=== PATIENT | male | born 1950 | race Caucasian/White ===

== ENCOUNTER 2018-07-01 10:15 | Emergency (ER) | payer MEDICARE, OTHER, MEDICAID ==
[2018-07-01 10:59] LABS: ADD MAN DIFF? NO
[2018-07-01 11:01] LABS: BASOPHIL # 0.1 10^3/ul (0.0-0.1); BASOPHILS % 0.3 % (0.0-2.0); EOSINOPHILS % 0.1 % (0.0-7.0); HEMATOCRIT 40.2 % (42.0-52.0); HEMOGLOBIN 13.9 g/dl (14.0-18.0); LYMPHOCYTES # 1.9 10^3/ul (0.8-2.9); LYMPHOCYTES % 9.3 % (15.0-51.0); MEAN CORPUSCULAR HEMOGLOBIN 33.7 pg (29.0-33.0); MEAN CORPUSCULAR HGB CONC 34.6 g/dl (32.0-37.0); MEAN CORPUSCULAR VOLUME 97.6 fl (82.0-101.0); MEAN PLATELET VOLUME 10.7 fl (7.4-10.4); MONOCYTE # 1.1 10^3/ul (0.3-0.9); MONOCYTES % 5.5 % (0.0-11.0); NEUTROPHIL # 16.8 10^3/ul (1.6-7.5); NEUTROPHILS % 84.1 % (39.0-77.0); PLATELET COUNT 192 10^3/UL (140-415); RED BLOOD COUNT 4.12 10^6/ul (4.70-6.10); RED CELL DISTRIBUTION WIDTH 12.3 % (11.5-14.5)
[2018-07-01 11:01] LABS: WHITE BLOOD COUNT 20.1 10^3/ul (4.8-10.8)
[2018-07-01] MEDS: ONDANSETRON 4 MG INJ IV ×2 (11:11→14:04)
[2018-07-01] MEDS: SOD CHLORIDE 0.9% 500 ML IV (11:11)
[2018-07-01] MEDS: HYDROmorphONE 1 MG/ML SYG IV (11:12)
[2018-07-01 12:09] LABS: ALANINE AMINOTRANSFERASE 18 IU/L (13-69); ALBUMIN 4.3 g/dl (3.3-4.9); ALBUMIN/GLOBULIN RATIO 1.34; ALKALINE PHOSPHATASE 109 IU/L (42-121); ANION GAP 14 (5-13); ASPARTATE AMINO TRANSFERASE 19 IU/L (15-46); BILIRUBIN,INDIRECT 0.6 mg/dl (0-1.1); BILIRUBIN,TOTAL 0.6 mg/dl (0.2-1.3); BLOOD UREA NITROGEN 19 mg/dl (7-20); CALCIUM 9.4 mg/dl (8.4-10.2); CARBON DIOXIDE 22 mmol/L (21-31); CHLORIDE 104 mmol/L (97-110); CREATININE 1.22 mg/dl (0.61-1.24); Estimated GFR 59 mL/min (>60); GLUCOSE 141 mg/dl (70-220); POTASSIUM 3.7 mmol/L (3.5-5.1); SODIUM 140 mmol/L (135-144); TOTAL PROTEIN 7.5 g/dl (6.1-8.1)
[2018-07-01 12:13] LABS: LIPASE < 10 U/L (23-300)
[2018-07-01] MEDS: NA PHOSPHATE/BIPHOS 133 ML ENEMA PR (12:17)
[2018-07-01 12:19] LABS: TROPONIN-I 0.031 ng/ml (0.000-0.120)
[2018-07-01 13:06] LABS: ADD UMIC NO; UR ASCORBIC ACID NEGATIVE (NEGATIVE); UR BILIRUBIN (Dip) NEGATIVE (NEGATIVE); UR BLOOD (Dip) NEGATIVE (NEGATIVE); UR CLARITY CLEAR (CLEAR); UR COLOR YELLOW (YELLOW); UR GLUCOSE (Dip) NEGATIVE (NEGATIVE); UR KETONES (Dip) NEGATIVE (NEGATIVE); UR LEUKOCYTE ESTERASE (Dip) NEGATIVE Leu/ul (NEGATIVE); UR NITRITE (Dip) NEGATIVE (NEGATIVE); UR SPECIFIC GRAVITY (Dip) 1.013 (1.003-1.030); UR TOTAL PROTEIN (Dip) NEGATIVE (NEGATIVE); UR UROBILINOGEN (Dip) NEGATIVE (NEGATIVE)
[2018-07-01] MEDS: morphine 4 MG/ML VIAL IV (14:04)
== END 2018-07-01 14:44 | disposition home or self-care (01) ==
LOC: E/R 10:15
DX: R10.84 Generalized abdominal pain (principal); I10 Essential (primary) hypertension; J45.909 Unspecified asthma, uncomplicated; K59.00 Constipation, unspecified
CPT/HCPCS: 36415; 74176; 80053; 81003; 83690; 84484; 85025; 96374; 96375; 96376; 99285-25

== ENCOUNTER 2018-08-19 08:52 | Emergency (ER) | payer MEDICARE, OTHER ==
[2018-08-19] MEDS ORDERED: ALBUTEROL 0.083% (NEB) 2.5 MG/3 ML AMP HHN (08:59)
[2018-08-19] MEDS ORDERED: IPRATROPIUM (NEB) 0.5 MG/2.5 ML AMP HHN (09:00)
[2018-08-19 09:07] LABS: AADO2 Venous 627.5 mmHg; MODE MASK - NRB; MetHgb Venous 0.4 %; Sample Type Blood venous; Site OTHER; Venous COHb 0.6 %; Venous Fraction OxyHgb 82.4 %; Venous Oxygen Sat 83.2 mmHG (55.0-75.0); Venous Total Hemglobin 14.1 g/dl
[2018-08-19] MEDS: IPRATROPIUM (NEB) 0.5 MG/2.5 ML AMP INH (09:12)
[2018-08-19] MEDS: ALBUTEROL 0.5% (NEB) 2.5 MG/0.5 ML AMP INH (09:12)
[2018-08-19 09:13] LABS: ADD MAN DIFF? NO
[2018-08-19] MEDS: SOD CHLORIDE 0.9% 1,000 ML IV (09:16)
[2018-08-19] MEDS: morphine 4 MG/ML VIAL IV (09:16)
[2018-08-19] MEDS: DEXAMETHASONE 10 MG/ML 1 ML INJ IV (09:17)
[2018-08-19] MEDS: ONDANSETRON 4 MG INJ IV (09:17)
[2018-08-19 09:19] LABS: WHITE BLOOD COUNT 12.9 10^3/ul (4.8-10.8)
[2018-08-19 09:19] LABS: BASOPHIL # 0.1 10^3/ul (0.0-0.1); BASOPHILS % 0.9 % (0.0-2.0); EOSINOPHILS # 0.5 10^3/ul (0.0-0.5); EOSINOPHILS % 3.8 % (0.0-7.0); HEMATOCRIT 38.6 % (42.0-52.0); HEMOGLOBIN 12.7 g/dl (14.0-18.0); LYMPHOCYTES # 4.4 10^3/ul (0.8-2.9); MEAN CORPUSCULAR HEMOGLOBIN 32.6 pg (29.0-33.0); MEAN CORPUSCULAR HGB CONC 32.9 g/dl (32.0-37.0); MEAN CORPUSCULAR VOLUME 99.2 fl (82.0-101.0); MEAN PLATELET VOLUME 10.2 fl (7.4-10.4); MONOCYTES % 7.4 % (0.0-11.0); NEUTROPHIL # 6.9 10^3/ul (1.6-7.5); NEUTROPHILS % 53.4 % (39.0-77.0); PLATELET COUNT 211 10^3/UL (140-415); RED BLOOD COUNT 3.89 10^6/ul (4.70-6.10); RED CELL DISTRIBUTION WIDTH 13.1 % (11.5-14.5)
[2018-08-19 09:45] LABS: ANION GAP 17 (5-13); BLOOD UREA NITROGEN 12 mg/dl (7-20); CALCIUM 9.1 mg/dl (8.4-10.2); CARBON DIOXIDE 18 mmol/L (21-31); CHLORIDE 107 mmol/L (97-110); CREATININE 1.21 mg/dl (0.61-1.24); Estimated GFR 59 mL/min (>60); GLUCOSE 187 mg/dl (70-220); SODIUM 142 mmol/L (135-144)
[2018-08-19] MEDS: HYDROCODONE/APAP (10/325) TAB PO (10:28)
[2018-08-19] MEDS: KETOROLAC 15 MG INJ IV (10:28)
[2018-08-19] MEDS: NEOMYC/POLYMYX/BACIT 30 GM OINT TOP (10:52)
[2018-08-19] MEDS: NEOMYC/POLYMYX/BACIT 0.9 GM OINT TOP (10:52)
== END 2018-08-19 11:46 | disposition home or self-care (01) ==
LOC: E/R 08:52
DX: T21.22XA Burn of second degree of abdominal wall, initial encounter (principal); T25.221A Burn of second degree of right foot, initial encounter; I10 Essential (primary) hypertension; J68.9 Unspecified respiratory condition due to chemicals, gases, fumes and vapors; T65.891A Toxic effect of other specified substances, accidental (unintentional), initial encounter; R06.02 Shortness of breath; X08.8XXA Exposure to other specified smoke, fire and flames, initial encounter; W40.9XXA Explosion of unspecified explosive materials, initial encounter; Y92.9 Unspecified place or not applicable; Z94.0 Kidney transplant status
CPT/HCPCS: 16000; 36415; 71045; 80048; 82803; 85025; 94644; 96374; 96375; 99284-25